=== PATIENT | female | born 1955 | race Caucasian/White ===

== ENCOUNTER 2019-10-22 22:49 | Inpatient (IN) | payer OTHER ==
[~2019-10-22] VITALS: Ht 154.9 cm; Wt 77.1 kg
[2019-10-22 23:05] VITALS: Ht 154.9 cm; Wt 77.1 kg
--- NOTE | 2019-10-23 00:09 | NUR ---
PATIENT SEEN WITH COMPLAINT OF CHEST PRESSURE AND SYNCOPE 2 HOURS AGO..PATIENT WENT TO HAVE CT HEAD DONE.
[2019-10-23 00:11] LABS: BASOPHIL % 0.3 % (0-2); PLATELET COUNT 247 x10^3mcL (130-400); RED CELL DISTRIBUTION WIDTH 14.6 % (11.5-14.5)
[2019-10-23 00:32] LABS: CALCIUM 8.7 mg/dL (8.5-10.1); CARBON DIOXIDE 30.2 mmol/L (21-32); CHLORIDE SERUM 99 mmol/L (98-107); CREATININE SERUM 0.9 mg/dL (0.6-1.0); GFR1 > 60 mL/min; GLUCOSE SERUM 213 mg/dL (74-106); POTASSIUM SERUM 3.2 mmol/L (3.5-5.1); SODIUM SERUM 137 mmol/L (136-145)
--- NOTE | 2019-10-23 00:37 | NUR ---
PT REFUSED IN AND OUT CATH. PT AMBULATED TO THE RESTROOM
[2019-10-23 00:41] LABS: ALBUMIN 3.8 g/dL (3.4-5.0); ALKALINE PHOSPHATASE 77 U/L (46-116); ALT/SGPT 38 U/L (14-59); AST/SGOT 16 U/L (15-37); BILIRUBIN TOTAL 0.22 mg/dL (0.20-1.00); CHOLESTEROL 174 mg/dL (<200); HDL CHOLESTEROL 32 mg/dL (40-60); LIPASE 230 IU/L (73-393); MAGNESIUM 1.9 mg/dL (1.8-2.4); T4(THYROXINE) 8.9 ug/dL (4.7-13.3); TOTAL PROTEIN, SERUM 7.6 g/dL (6.4-8.2)
[2019-10-23 00:52] LABS: microscopic required? NO
[2019-10-23 00:59] LABS: urine erythrocyte NEGATIVE (NEGATIVE)
[2019-10-23 01:34] LABS: AMPHETAMINE QUAL UR NONE DETECTED (See below)
[2019-10-23] MEDS ORDERED: HYDROCHLOROTHIA25 MG PO (02:02)
[2019-10-23] MEDS ORDERED: CLARINEX5 MG PO (02:03)
[2019-10-23] MEDS ORDERED: CELEXA40 MG PO (02:03)
[2019-10-23] MEDS ORDERED: NASONEX0.05 MG/Ac (02:05)
--- NOTE | 2019-10-23 02:20 | NUR ---
REPORT WAS GIVEN TO MATEUS. PATIENT WILL BE TRANSPORTED TO ROOM 206B
[2019-10-23 03:03] VITALS: BP 134/71
--- NOTE | 2019-10-23 03:12 | NUR ---
RECEIVED FROM ER, TRANSPORTED VIA [facility]. AWAKE, ALERT, ORIENTED TO NAME, PLACE, TIME AND SITUATION. AMBULATED TO ROOM WITH STEADY GAIT. 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 DENIES HAVING HEADACHE, DIZZINESS OR NAUSEA AT THIS TIME. DENIES HAVING VISUAL CHANGES AT THIS TIME. SALINE LOCK TO LEFT HAND. BREATHING EVEN AND UNLABORED ON ROOM AIR. HOB ELEVATED 30 DEG. UPPER SIDE RAILS RAISED, INSTRUCTED ON USE OF CALL LIGHT TO CALL FOR ASSISTANCE, PLACED WITHIN EASY REACH.
--- NOTE | 2019-10-23 04:21 | NUR ---
REPORT WAS GIVEN TO MATEUS. PATIENT TRANSPORTED TO ROOM 206B.PATIENT WAS MEDICATED WITH ORAL POTASSIUM FOR LOW POTASSIUM LEVEL-- 3.2
--- NOTE | 2019-10-23 05:56 | NUR ---
PAGED SHANIKA PIERRE OF [facility] FOR ADDITIONAL ADMIT ORDERS.
--- NOTE | 2019-10-23 06:18 | NUR ---
RECEIVED TELEPHONE ORDERS FROM SHANIKA PIERRE. READ BACK.
[2019-10-23 06:27] VITALS: BP 93/64
--- NOTE | 2019-10-23 06:34 | NUR ---
EYES CLOSED, BREATHING EVEN AND UNLABORED ON ROOM AIR. CALL LIGHT WITHIN EASY REACH. SINUS RHYTHM ON TELE, HR 75/MIN.
--- NOTE | 2019-10-23 07:07 | NUR ---
EYES CLOSED, EASILY AWAKENED. ASYMPTOMATIC. BREATHING EVEN AND UNLABORED. CALL LIGHT WITHIN EASY REACH. ENDORSED TO NURSE DAVID
--- NOTE | 2019-10-23 07:30 | NUR ---
RECEIVED PT IN BED, ASSESSED AND DOCUMENTED. DENIES PAIN THIS TIME. NO DIZZINESS THIS TIME. SAFTEY PRCAUTIONS ARE IN PLACE. WILL MONITOR.
[2019-10-23 09:21] VITALS: BP 105/56
--- NOTE | 2019-10-23 12:30 | NUR ---
PT SITTING UP IN THE BED AND EATING BREAKFAST, STABLE. TURKEY ROLL MAKER DOING VITAL SIGNS, INFORMED HER ABOUT NEED ORTHOSTATIC V/S. PT SAID SHE IS EATING NOW AND DO ORTHOSTATIC V/S LATER.
[2019-10-23 12:53] VITALS: BP 142/71
--- NOTE | 2019-10-23 16:00 | NUR ---
CAME AND SAW THE PT, AWARE ABOUT ORTHOSTATIC V/S. HE SPOKE WITH PT AND SAID SHE IS STABLE TO GO HOME.
[2019-10-23 16:03] VITALS: BP 116/59
[2019-10-23 16:25] VITALS: BP 116/59
--- NOTE | 2019-10-23 17:10 | NUR ---
DISCHARGE INSTRUCTIONS GIVEN. PB SIGNED AND SENT WITH PT. IV REMOVED AND DRESSING APPLIED. TELE REMOVED AND RETURNED. AT BEDSIDE. DOG WARDEN WHEELED PT DOWN TO LOBBY ACCOMPANIED WITH . PT DC HOME.
== END 2019-10-23 17:28 | disposition home or self-care (01) | DRG 897 ==
LOC: ED 22:49 → DU 10-23 01:10
PROVIDERS: Emergency Medicine; ADMIT Internal Medicine Nephrology
DX: F12.10 Cannabis abuse, uncomplicated (principal); Z88.8 Allergy status to other drugs, medicaments and biological substances; I10 Essential (primary) hypertension; E11.9 Type 2 diabetes mellitus without complications; F17.210 Nicotine dependence, cigarettes, uncomplicated; Z90.49 Acquired absence of other specified parts of digestive tract; S09.90XA Unspecified injury of head, initial encounter; W18.39XA Other fall on same level, initial encounter; Y93.89 Activity, other specified; Y92.89 Other specified places as the place of occurrence of the external cause; Y99.8 Other external cause status; E87.6 Hypokalemia; E86.9 Volume depletion, unspecified
CPT/HCPCS: 82962; 99406; G0378; G0480; Q0092

== ENCOUNTER 2020-06-12 18:43 | Emergency (ER) | payer OTHER, SELFPAY ==
[~2020-06-12] VITALS: Ht 154.9 cm; Wt 77.1 kg
[~2020-06-12 18:43] MED LIST: CELEXA40 MG PO; CLARINEX5 MG PO; HYDROCHLOROTHIA25 MG PO; NASONEX0.05 MG/Ac
[2020-06-12 18:47] VITALS: Ht 154.9 cm; Wt 77.1 kg
[2020-06-12 21:55] VITALS: BP 156/75
== END 2020-06-12 21:55 | disposition home or self-care (01) ==
LOC: ED 18:43
DX: G43.909 Migraine, unspecified, not intractable, without status migrainosus (principal); I10 Essential (primary) hypertension; Z88.8 Allergy status to other drugs, medicaments and biological substances; Z98.890 Other specified postprocedural states
CPT/HCPCS: J1200; J2765